=== PATIENT | male | born 1980 | race Caucasian/White ===

== ENCOUNTER 2024-10-27 03:46 | Emergency (ER) | payer OTHER, SELFPAY ==
[~2024-10-27] VITALS: Ht 177.8 cm; Wt 96.6 kg
[2024-10-27 03:54] VITALS: BP 148/88; TEMP 98.3; O2SAT 98
[2024-10-27] MEDS: ONDANSETRON 4MG 2ML VIAL IV ONE (05:05)
[2024-10-27] MEDS: NS (Normal Saline) 0.9% 1,000 ML IV ONE (05:05)
[2024-10-27] MEDS ORDERED: ONDA-282 PO (06:20)
[2024-10-27] MEDS ORDERED: LOPE2TAB12 PO (06:22)
== END 2024-10-27 07:07 | disposition home or self-care (01) ==
LOC: M ED 03:46
DX: A08.11 Acute gastroenteropathy due to Norwalk agent (principal); I10 Essential (primary) hypertension
CPT/HCPCS: 87486; 87507; 87581; 87633; 87798; 96361; 96374; 99284; J2405